=== PATIENT | female | born 1970 | race African-American/Black ===

== ENCOUNTER → 2018-02-24 | Outpatient (CLI) | payer OTHER ==
[~2018-02-24] MED LIST: GADAVIST IV PRN
--- NOTE | 2018-02-24 08:02 | DIAGNOSTIC IMAGING REPORT ---
MRI OF THE BRAIN WITHOUT AND WITH IV CONTRAST CLINICAL HISTORY: TRIGEMINAL NEURALGIA COMPARISON STUDY: No previous studies for comparison. TECHNIQUE: MRI of the brain was performed from the vertex to the skull base utilizing various T1 and T2 weighted sequences. Following the IV administration of 10.5 mL of Gadavist contrast, additional enhanced images were obtained. FINDINGS: The examination is limited from a technical standpoint secondary to the patient's large body habitus and inability to optimally fit in the head coil. Sagittal T1, axial diffusion, proton density and T2 weighted axial, coronal FLAIR, and pre and post axial T1-weighted images were acquired. These were supplemented with post gadolinium coronal T1 weighted images. No intra or extra-axial mass lesions are visualized. Axial diffusion-weighted images reveal no evidence of acute or subacute infarction. There is no evidence of ventricular dilatation. Proton density T2-weighted and FLAIR images reveal scattered foci of increased T2 signal within the white matter, likely on a small vessel basis. There are no abnormal flow voids. There is no evidence of pathologic enhancement. Equivocal slight enlargement of the left trigeminal nerve as compared to the right, likely relates to technical factors. There is no pathologic enhancement. IMPRESSION: 1. Technically limited study secondary to the patient's large body habitus and inability to be optimally positioned within the head coil 2. No evidence of acute or subacute infarction 3. No evidence of intracranial mass 4. Nonspecific scattered foci of increased T2 signal within the white matter, likely on a small vessel basis Electronically signed by: Pedro Ward M.D. 02/24/2018 8:01 AM Dictated Date/Time: 02/24/2018 7:51 AM
== END | disposition home or self-care (01) ==
LOC: C.MRI 06:41
PROVIDERS: ATTEND Family Medicine
DX: G50.0 Trigeminal neuralgia (principal); Z91.048 Other nonmedicinal substance allergy status

== ENCOUNTER → 2018-02-24 | Outpatient (CLI) | payer OTHER | END | disposition home or self-care (01) | LOC: C.PAPS 16:05 | PROVIDERS: ATTEND Physician Assistant | DX: Z12.4 Encounter for screening for malignant neoplasm of cervix (principal) ==

== ENCOUNTER → 2018-02-24 | Outpatient (CLI) | payer OTHER | END | disposition home or self-care (01) | LOC: C.LABSPEC 15:44 | PROVIDERS: ATTEND Physician Assistant | DX: Z11.8 Encounter for screening for other infectious and parasitic diseases (principal); Z11.3 Encounter for screening for infections with a predominantly sexual mode of transmission ==